=== PATIENT | male | born 1955 | race Caucasian/White ===

== ENCOUNTER 2016-11-08 16:58 | Inpatient (IN) | payer OTHER ==
[2016-11-08 19:03] VITALS: BP 142/75
[2016-11-08 23:05] VITALS: BP 107/71
[2016-11-09] VITALS (7 sets, daily range): BP systolic 89–149; BP diastolic 53–80
== END 2016-11-09 14:22 | disposition short-term general hospital (02) | DRG 193 ==
LOC: ED 16:58 → MED/SURG 18:24
PROVIDERS: ADMIT Family Medicine
DX: J18.9 Pneumonia, unspecified organism (principal); N17.0 Acute kidney failure with tubular necrosis; E86.9 Volume depletion, unspecified; R63.0 Anorexia; R00.0 Tachycardia, unspecified
CPT/HCPCS: J0456; J0696; J7030; J7050